=== PATIENT | male | born 1960 | race Caucasian/White ===

== ENCOUNTER 2021-12-08 12:18 | Inpatient (IN) ==
[2021-12-08 13:24] LABS: Basophils % 0.4 %; Eosinophils # 0.3 K/mcL (0.0-0.6); Eosinophils % 4.1 %; Hematocrit 32.5 % (37.5-50.1); Hemoglobin 9.6 g/dL (12.9-16.9); Immature Granulocytes % 0.3 % (0-4); Lymphocytes # 0.7 K/mcL (0.6-4.6); Lymphocytes % 9.4 %; Mean Corpuscular HGB Conc 29.5 g/dL (31.6-35.5); Mean Corpuscular Hemoglobin 30.1 pg (28.0-33.3); Mean Corpuscular Volume 101.9 fL (83.0-100.0); Mean Platelet Volume 9.6 fL (9.4-12.4); Monocytes # 0.5 K/mcL (0.0-1.3); Monocytes % 7.1 %; Neutrophils # 5.6 K/mcL (1.6-8.9); Platelet Count 193 K/mcL (140-400); Red Blood Count 3.19 M/mcL (4.19-5.50); Red Cell Distribution Width 12.2 % (11.5-14.5); Segmented Neutrophils % 78.7 %; White Blood Count 7.1 K/mcL (4.3-11.1)
[2021-12-08 13:40] LABS: Alanine Aminotransferase 16 Units/L (7-52); Albumin 3.6 g/dL (3.5-5.7); Albumin/Globulin Ratio 1.3 (1.1-2.2); Alkaline Phosphatase 70 Units/L (34-104); Aspartate Amino Transferase 16 Units/L (13-39); BUN/Creatinine Ratio 14 (6-26); Bilirubin,Total 0.3 mg/dL (0.3-1.0); Blood Urea Nitrogen 49 mg/dL (8-23); Calcium 8.9 mg/dL (8.6-10.3); Carbon Dioxide 25 mEq/L (23-29); Chloride 106 mEq/L (98-107); Globulin 2.8 g/dL (2.4-3.5); Glucose 271 mg/dL (70-105); Osmolality,Calculated 307 (280-300); Potassium 5.7 mEq/L (3.5-5.1); Sodium 137 mEq/L (136-145); Total Protein 6.4 g/dL (6.4-8.9); Troponin I < 0.03 ng/mL (< 0.04); eGFR For African Americans 23 (> 60); eGFR For Non-African Americans 19 (> 60)
[2021-12-08 13:51] LABS: Influenza A PCR Negative (Negative); Influenza B PCR Negative (Negative); Resp. Syncytial Virus PCR Negative (Negative)
[2021-12-08 13:52] LABS: SARS-CoV-2 by PCR (In House) Negative (Negative)
[2021-12-08] MEDS ORDERED: Ondansetron 4 MG/2 ML VIAL IVP ONE (14:42)
[2021-12-08] MEDS ORDERED: Morphine Sulfate 2 MG/ML SYRINGE IVP ONE (14:42)
[2021-12-08] MEDS ORDERED: *HR* Dextrose 50 % in Water (Vial) 50 ML VIAL IVP ONE (16:39)
[2021-12-08] MEDS ORDERED: Insulin Human Regular 10 UNIT in 0.9 % Sodium Chloride 10 ML IV ONE (16:39)
[2021-12-08] MEDS ORDERED: *HR* Dextrose 50 % in Water (Syg) 50 ML SYRINGE IVP ONE ×2 (16:45→23:30)
[2021-12-08] MEDS ORDERED: Naloxone 0.4 MG/ML INJ IVP PRN ×2 (16:57→23:10)
[2021-12-08] MEDS ORDERED: Ondansetron 4 MG/2 ML VIAL IVP PRN ×2 (16:57→23:10)
[2021-12-08] MEDS ORDERED: *HR* Dextrose 50 % in Water (Syg) 50 ML SYRINGE IVP PRN ×2 (16:59→23:10)
[2021-12-08] MEDS ORDERED: Dextrose Gel 15 GM/37.5 ML TUBE PO PRN ×4 (16:59→23:10)
[2021-12-08] MEDS ORDERED: D5% in Water 1,000 ML IVC PRN ×2 (16:59→23:10)
[2021-12-08] MEDS ORDERED: Morphine Sulfate 2 MG/ML SYRINGE IVP PRN (17:10)
[2021-12-08] MEDS ORDERED: Insulin LISPRO 300 UNITS/3 ML VIAL SUBQ SCH (18:00)
[2021-12-08] MEDS ORDERED: Famotidine 20 MG/2 ML VIAL IVP ONE (18:49)
[2021-12-08] MEDS ORDERED: Acetaminophen IV 1,000 MG/100 ML BAG IVPB ONE (18:49)
[2021-12-08] MEDS ORDERED: CeFAZolin Syr 3,000MG/30 ML 3,000 MG/30 ML SYRINGE IVPB ONE (19:28)
[2021-12-08] MEDS ORDERED: 0.9 % Sodium Chloride 1,000 ML IVC SCH ×2 (19:30→23:10)
[2021-12-08] MEDS ORDERED: Ondansetron 4 MG/2 ML VIAL ONE (19:41)
[2021-12-08] MEDS ORDERED: Lidocaine -MPF 2% 5 ML VIAL ONE (19:41)
[2021-12-08] MEDS ORDERED: *HR* Propofol 200 MG/20 ML VIAL IVP ONE (19:41)
[2021-12-08] MEDS ORDERED: *HR* Rocuronium Bromide 50 MG/5 ML VIAL ONE (19:41)
[2021-12-08] MEDS ORDERED: Lidocaine -MPF 4% 5 ML AMPUL ONE ×2 (19:41→19:46)
[2021-12-08] MEDS ORDERED: *HR* Succinylcholine 200 MG/10 ML VIAL IVP ONE (19:41)
[2021-12-08] MEDS ORDERED: Ropivacaine/PF 0.5% 30 ML VIAL ONE (19:41)
[2021-12-08] MEDS ORDERED: *HR* FentaNYL (PF) 100 MCG/2 ML VIAL ONE (19:41)
[2021-12-08] MEDS ORDERED: Bupivacaine/EPI 1:200k 0.25% 50 ML VIAL ONE (20:35)
[2021-12-08] MEDS ORDERED: EPHEDrine 50 MG/ML VIAL ONE (21:19)
[2021-12-09] MEDS: Insulin LISPRO 300 UNITS/3 ML VIAL SUBQ SCH ×4 (00:32→18:08)
[2021-12-09] MEDS: Morphine Sulfate 2 MG/ML SYRINGE IVP PRN ×3 (03:09→22:17)
[2021-12-09 05:34] LABS: Basophils % 0.2 %; Hematocrit 31.7 % (37.5-50.1); Hemoglobin 9.3 g/dL (12.9-16.9); Immature Granulocytes % 0.4 % (0-4); Lymphocytes # 0.3 K/mcL (0.6-4.6); Lymphocytes % 5.7 %; Mean Corpuscular HGB Conc 29.3 g/dL (31.6-35.5); Mean Corpuscular Hemoglobin 30.7 pg (28.0-33.3); Mean Corpuscular Volume 104.6 fL (83.0-100.0); Mean Platelet Volume 9.9 fL (9.4-12.4); Monocytes # 0.3 K/mcL (0.0-1.3); Neutrophils # 4.8 K/mcL (1.6-8.9); Platelet Count 190 K/mcL (140-400); Red Blood Count 3.03 M/mcL (4.19-5.50); Red Cell Distribution Width 12.4 % (11.5-14.5); Segmented Neutrophils % 88.7 %; White Blood Count 5.4 K/mcL (4.3-11.1)
[2021-12-09 07:40] LABS: Calcium 8.4 mg/dL (8.6-10.3); Potassium 7.3 mEq/L (3.5-5.1)
[2021-12-09] MEDS ORDERED: Insulin Human Regular 10 UNIT in 0.9 % Sodium Chloride 10 ML IV ONE (07:51)
[2021-12-09] MEDS ORDERED: Calcium Gluconate 1gm/50mL 1 GM/50 ML BAG IVPB PRN (07:51)
[2021-12-09] MEDS ORDERED: *HR* Dextrose 50 % in Water (Syg) 50 ML SYRINGE IVP ONE (07:51)
[2021-12-09] MEDS ORDERED: SODIUM ZIRCONIUM CYCLOSILICATE 5 GM POWD.PACK PO STA (08:48)
[2021-12-09] MEDS ORDERED: SODIUM ZIRCONIUM CYCLOSILICATE 5 GM POWD.PACK PO SCH (09:00)
[2021-12-09] MEDS: Sodium Bicarbonate 75 MEQ in 0.45 % Sodium Chloride 1,000 ML IVC SCH (10:01)
[2021-12-09] MEDS: SODIUM ZIRCONIUM CYCLOSILICATE 5 GM POWD.PACK PO SCH (15:45)
[2021-12-10] MEDS: Insulin LISPRO 300 UNITS/3 ML VIAL SUBQ SCH ×4 (00:58→19:29)
[2021-12-10] MEDS: Sodium Bicarbonate 75 MEQ in 0.45 % Sodium Chloride 1,000 ML IVC SCH ×2 (03:03→12:30)
[2021-12-10] MEDS: Morphine Sulfate 2 MG/ML SYRINGE IVP PRN (05:16)
[2021-12-10 05:22] LABS: Basophils % 0.4 %; Eosinophils # 0.2 K/mcL (0.0-0.6); Eosinophils % 3.1 %; Hematocrit 26.5 % (37.5-50.1); Hemoglobin 7.8 g/dL (12.9-16.9); Immature Granulocytes % 0.2 % (0-4); Lymphocytes % 18.5 %; Mean Corpuscular HGB Conc 29.4 g/dL (31.6-35.5); Mean Corpuscular Hemoglobin 30.4 pg (28.0-33.3); Mean Corpuscular Volume 103.1 fL (83.0-100.0); Mean Platelet Volume 9.9 fL (9.4-12.4); Monocytes # 0.7 K/mcL (0.0-1.3); Neutrophils # 3.3 K/mcL (1.6-8.9); Platelet Count 158 K/mcL (140-400); Red Blood Count 2.57 M/mcL (4.19-5.50); Red Cell Distribution Width 12.4 % (11.5-14.5); Segmented Neutrophils % 63.8 %; White Blood Count 5.2 K/mcL (4.3-11.1)
[2021-12-10 05:31] LABS: Calcium 8.4 mg/dL (8.6-10.3); Potassium 4.9 mEq/L (3.5-5.1)
[2021-12-10] MEDS: SODIUM ZIRCONIUM CYCLOSILICATE 5 GM POWD.PACK PO SCH (11:46)
[2021-12-11] MEDS: Insulin LISPRO 300 UNITS/3 ML VIAL SUBQ SCH ×4 (00:30→18:23)
[2021-12-11 02:53] LABS: Calcium 8.3 mg/dL (8.6-10.3); Potassium 4.8 mEq/L (3.5-5.1)
[2021-12-11 11:40] LABS: Basophils % 0.2 %; Eosinophils # 0.1 K/mcL (0.0-0.6); Eosinophils % 2.8 %; Hematocrit 28.5 % (37.5-50.1); Hemoglobin 8.4 g/dL (12.9-16.9); Immature Granulocytes % 0.4 % (0-4); Lymphocytes # 0.8 K/mcL (0.6-4.6); Lymphocytes % 14.8 %; Mean Corpuscular HGB Conc 29.5 g/dL (31.6-35.5); Mean Corpuscular Hemoglobin 30.5 pg (28.0-33.3); Mean Corpuscular Volume 103.6 fL (83.0-100.0); Mean Platelet Volume 10.3 fL (9.4-12.4); Monocytes # 0.6 K/mcL (0.0-1.3); Monocytes % 11.4 %; Neutrophils # 3.6 K/mcL (1.6-8.9); Platelet Count 176 K/mcL (140-400); Red Blood Count 2.75 M/mcL (4.19-5.50); Red Cell Distribution Width 12.2 % (11.5-14.5); Segmented Neutrophils % 70.4 %; White Blood Count 5.1 K/mcL (4.3-11.1)
[2021-12-11] MEDS ORDERED: Ondansetron 4 MG/2 ML VIAL IVP PRN (17:46)
[2021-12-11] MEDS: polyethylene glycoL 3350 17 GM POWD.PACK PO SCH (18:39)
[2021-12-11] MEDS: hydrALAZINE 25 MG TABLET PO SCH (21:35)
[2021-12-11] MEDS: Gabapentin 300 MG CAPSULE PO SCH (21:35)
[2021-12-11] MEDS: Acetaminophen 325 MG TABLET PO PRN (21:40)
[2021-12-12] MEDS: Insulin LISPRO 300 UNITS/3 ML VIAL SUBQ SCH ×4 (01:44→20:06)
[2021-12-12 07:46] LABS: Calcium 8.5 mg/dL (8.6-10.3); Potassium 4.7 mEq/L (3.5-5.1)
[2021-12-12 10:36] LABS: Estimated Average Glucose 183 mg/dl
[2021-12-12] MEDS: polyethylene glycoL 3350 17 GM POWD.PACK PO SCH (15:39)
[2021-12-12] MEDS: hydrALAZINE 25 MG TABLET PO SCH ×2 (15:39→20:11)
[2021-12-12] MEDS: Gabapentin 300 MG CAPSULE PO SCH ×2 (15:40→20:12)
[2021-12-12] MEDS: Acetaminophen 325 MG TABLET PO PRN (20:11)
[2021-12-13] MEDS: Insulin LISPRO 300 UNITS/3 ML VIAL SUBQ SCH ×4 (00:55→17:05)
[2021-12-13 03:51] LABS: Calcium 8.4 mg/dL (8.6-10.3); Potassium 4.5 mEq/L (3.5-5.1)
[2021-12-13] MEDS: hydrALAZINE 25 MG TABLET PO SCH ×2 (07:54→21:31)
[2021-12-13] MEDS: Gabapentin 300 MG CAPSULE PO SCH ×2 (07:54→21:31)
[2021-12-13] MEDS: polyethylene glycoL 3350 17 GM POWD.PACK PO SCH (07:54)
[2021-12-13] MEDS ORDERED: Febuxostat [Uloric] 40 MG Tablet PO SCH (09:00)
[2021-12-13] MEDS: Acetaminophen 325 MG TABLET PO PRN (12:45)
[2021-12-13] MEDS ORDERED: Saline Nasal Spray 44 ML BOTTLE NS PRN (14:03)
[2021-12-13 19:15] LABS: Adenovirus Not Detected (Not Detect); Bordetella Pertussis Not Detected (Not Detect); Chlamydophila pneumoniae Not Detected (Not Detect); Coronavirus 229E Not Detected (Not Detect); Coronavirus HKU1 Not Detected (Not Detect); Coronavirus NL63 Not Detected (Not Detect); Coronavirus OC43 Not Detected (Not Detect); Human Metapneumovirus Not Detected (Not Detect); Human Rhinovirus/Enterovirus Not Detected (Not Detect); Influenza A Subtype 2009 H1 Not Detected (Not Detect); Influenza B Not Detected (Not Detect); Mycoplasma pneumoniae Not Detected (Not Detect); Parainfluenza Virus 1 Not Detected (Not Detect); Parainfluenza Virus 2 Not Detected (Not Detect); Parainfluenza Virus 3 Not Detected (Not Detect); Parainfluenza Virus 4 Not Detected (Not Detect); Respiratory Syncytial Virus Not Detected (Not Detect); SARS-CoV-2 Not Detected (Not Detect)
[2021-12-14] MEDS: Insulin LISPRO 300 UNITS/3 ML VIAL SUBQ SCH ×4 (00:42→17:40)
[2021-12-14 08:17] LABS: Calcium 8.3 mg/dL (8.6-10.3); Potassium 4.5 mEq/L (3.5-5.1)
[2021-12-14] MEDS: hydrALAZINE 25 MG TABLET PO SCH (09:04)
[2021-12-14] MEDS: Gabapentin 300 MG CAPSULE PO SCH (09:04)
[2021-12-14] MEDS: polyethylene glycoL 3350 17 GM POWD.PACK PO SCH (09:05)
[2021-12-14 15:26] VITALS: BP 159/73; PULSE 84; TEMP 98.1; O2SAT 96
[2021-12-15] MEDS ORDERED: *HR* Rivaroxaban 10 MG TABLET PO SCH (06:00)
== END 2021-12-14 18:35 | DRG 493 ==
LOC: 4WAOSI 12:18 → EMEROOARM 12:18 → SUATTDRO 16:41 → 4WAOSI 16:47
PROVIDERS: ADMIT Family Medicine; ATTEND Hospitalist